=== PATIENT | male | born 1990 | race American Indian/Alaskan Native ===

== ENCOUNTER 2018-06-20 11:00 | Outpatient (CLI) | payer MEDICAID | END 2018-06-20 11:01 | disposition home or self-care (01) | LOC: SLR 11:00 | PROVIDERS: ATTEND Otolaryngology | DX: G47.33 Obstructive sleep apnea (adult) (pediatric) (principal) | CPT/HCPCS: G0399 ==

== ENCOUNTER 2018-06-30 11:00 | Outpatient (CLI) | payer MEDICAID | END 2018-06-30 11:01 | disposition home or self-care (01) | LOC: SLR 11:00 | PROVIDERS: ATTEND Otolaryngology | DX: G47.33 Obstructive sleep apnea (adult) (pediatric) (principal) | CPT/HCPCS: 95811 ==

== ENCOUNTER 2019-03-17 07:20 | Day surgery (SDC) | payer MEDICAID ==
--- NOTE | 2019-03-17 08:17 | Anesthesia Day of Surgery ---
Anesthesia Day of Surgery - Day of Surgery Patient Examined: Yes Patient H&P Reviewed: Yes Patient is NPO: Yes Beta Blockers: No
--- NOTE | 2019-03-17 08:18 | Anesthesia Consultation ---
Anesthesia Consult and Med Hx Date of service: 03/17/19 - Airway Anesthetic Teeth Evaluation: Good ROM Head & Neck: Adequate Mental/Hyoid Distance: Adequate Mallampati Class: Class III Intubation Access Assessment: Probably Good - Pulmonary Exam CTA: Yes - Cardiac Exam Cardiac Exam: No Murmur - Pre-Operative Health Status ASA Pre-Surgery Classification: ASA2 Proposed Anesthetic Plan: MAC - Pulmonary Hx Sleep Apnea: Yes - Other Systems Hx Obesity: Yes
[2019-03-17] MEDS ORDERED: NACL 0.9% 1000 ML 1,000 ML IV SCH (09:00)
[2019-03-17] MEDS ORDERED: DIPRIVAN 10 MG/ML IV ONE (10:10)
[2019-03-17] MEDS ORDERED: VERSED ONE (10:10)
[2019-03-17] MEDS ORDERED: XYLOCAINE 2% INFILTRATI ONE (10:11)
[2019-03-17] MEDS ORDERED: WATER FOR IRRIG STERILE IR ONE (10:13)
--- NOTE | 2019-03-17 14:31 | Operative Report ---
PREOPERATIVE DIAGNOSIS: Morbid obesity. POSTOPERATIVE DIAGNOSIS: Small hiatal hernia. PROCEDURE: EGD. ANESTHESIA: MAC. COMPLICATIONS: None. BLEEDING: None. SPECIMENS: None. INDICATIONS: The patient is a 28-year-old male with a history of morbid obesity. He is here for preoperative EGD. Informed consent obtained. DESCRIPTION OF PROCEDURE: The patient was brought to the GI suite, was placed in the left lateral decubitus position. He underwent MAC anesthesia. A bite block was placed and a timeout was called. A standard adult gastroscope was inserted into the oropharynx and the esophagus into the stomach and first portion of the duodenum. On retroflexion view and inspection, he was noted to have a small type 1 sliding hiatal hernia. There were no other abnormalities. With this, the air was desufflated. The gastroscope was removed. The patient tolerated the procedure well and was transferred to the PACU in stable condition. Counts were correct. JOB# [id number] MAIKEL/KELL
[2019-03-17 20:32] VITALS: BP 129/72
== END 2019-03-17 07:21 | disposition home or self-care (01) ==
LOC: GIO 07:20
PROVIDERS: ATTEND Specialist
DX: K44.9 Diaphragmatic hernia without obstruction or gangrene (principal); E66.01 Morbid (severe) obesity due to excess calories; G47.30 Sleep apnea, unspecified; Z68.29 Body mass index [BMI] 29.0-29.9, adult; Z79.899 Other long term (current) drug therapy
CPT/HCPCS: 43235; J2250; J2704; J7030

== ENCOUNTER 2019-03-24 07:51 | Observation (INO) | payer MEDICAID ==
[~2019-03-24 07:51] MED LIST: ANCEF/STERILE WATER 2 GM/20 ML 2 GM/20 ML SYRINGE IV NR; APRESOLINE IV PRN; FLAGYL 500 MG/100 ML 500 MG/100 ML BAG IV NR; LOVENOX SUB-Q NR; MORPHINE IV PRN; MYLICON PO PRN; NORCO PO PRN; TRANSDERM-SCOP TD SCH; ZOFRAN IV PRN
[2019-03-24] MEDS: LACTATED RINGERS 1,000 ML IV SCH ×2 (08:55→22:53)
[2019-03-24] MEDS ORDERED: TYLENOL PO NR (09:00)
[2019-03-24] MEDS ORDERED: NEURONTIN PO NR (09:00)
[2019-03-24] MEDS ORDERED: DILAUDID IV PRN (09:13)
[2019-03-24] MEDS ORDERED: SUBLIMAZE IV PRN (09:13)
[2019-03-24] MEDS ORDERED: ZOFRAN IV PRN (09:13)
--- NOTE | 2019-03-24 09:14 | Anesthesia Day of Surgery ---
Anesthesia Day of Surgery - Day of Surgery Patient Examined: Yes Patient H&P Reviewed: Yes Patient is NPO: Yes Cardiac Clearance: Yes
--- NOTE | 2019-03-24 09:17 | Anesthesia Consultation ---
Anesthesia Consult and Med Hx Date of service: 03/24/19 - Airway Anesthetic Teeth Evaluation: Chipped ROM Head & Neck: Adequate Mental/Hyoid Distance: Adequate Mallampati Class: Class II Intubation Access Assessment: Good - Pre-Operative Health Status ASA Pre-Surgery Classification: ASA3 Proposed Anesthetic Plan: General - Pulmonary Hx Sleep Apnea: Yes (ISH and Central) - Cardiovascular System Hx Coronary Artery Disease: No (Had bicycle exercise test-results reviewed) - Central Nervous System Hx Psychiatric Problems: No - Gastrointestinal Hx Gastroesophageal Reflux Disease: No (Hiatal Hernia) - Hematic Hx Sickle Cell Disease: No - Other Systems Hx Alcohol Use: Yes Hx Substance Use: No Hx Obesity: Yes
[2019-03-24] MEDS ORDERED: DIPRIVAN 10 MG/ML IV ONE ×2 (10:17→10:43)
[2019-03-24] MEDS ORDERED: XYLOCAINE 1% 20 mL ONE (10:18)
[2019-03-24] MEDS ORDERED: XYLOCAINE MPF 2% ONE (10:18)
[2019-03-24] MEDS ORDERED: ZOFRAN ONE (10:18)
[2019-03-24] MEDS ORDERED: MARCAINE-EPI 0.5%-1:200,000 INFILTRATI ONE ×3 (10:18→11:24)
[2019-03-24] MEDS ORDERED: QUELICIN ONE (10:18)
[2019-03-24] MEDS ORDERED: DECADRON ONE (10:18)
[2019-03-24] MEDS ORDERED: ZEMURON IV ONE (10:18)
[2019-03-24] MEDS ORDERED: SUBLIMAZE ONE ×2 (10:19→11:28)
[2019-03-24] MEDS ORDERED: VERSED ONE (10:38)
[2019-03-24] MEDS ORDERED: NEO SYNEPHRINE/NS Syringe(OR USE) IV ONE ×2 (11:17→11:26)
[2019-03-24] MEDS ORDERED: XYLOCAINE 1% 20 mL INFILTRATI ONE ×2 (11:24)
[2019-03-24] MEDS ORDERED: NACL 0.9% IR ONE (11:25)
[2019-03-24] MEDS ORDERED: BLOXIVERZ ONE (11:53)
[2019-03-24] MEDS ORDERED: ROBINUL ONE (11:53)
--- NOTE | 2019-03-24 12:37 | Operative Report ---
SURGEON: Dario Carbone MD CO-SURGEON: Herlinda Coleman MD DIMPLING MACHINE OPERATOR: Jamal Gamez MD PREOPERATIVE DIAGNOSIS: Morbid obesity. POSTOPERATIVE DIAGNOSIS: Morbid obesity. OPERATION: 1. Laparoscopic sleeve gastrectomy. 2. Laparoscopic hiatal hernia repair. ANESTHESIA: General endotracheal anesthesia. COMPLICATIONS: None. SPECIMENS: Gastric remnant. ESTIMATED BLOOD LOSS: Less than 20 mL. INDICATIONS: The patient is a 28-year-old male with a history of morbid obesity. He has undergone preoperative bariatric workup, presents for his planned operation. The risks, alternatives, and complications had been explained to the patient and informed consent was obtained. DESCRIPTION OF PROCEDURE: The patient was brought to the operating room. He was placed in the supine position and underwent general endotracheal intubation. He received preoperative antibiotics and DVT prophylaxis. He was prepped and draped in the usual sterile fashion and then a timeout was called to ensure proper patient, indication, operation. Local analgesia was injected around the umbilical region and then a small stab incision was made at the base of the insertion of a Veress needle. Insufflation pressures were achieved to 18 mmHg. The incision was widened and exchanged for a 15 mm trocar. On intraabdominal view, there was no injury. Additional 5 mm ports were then placed in the right lateral subxiphoid and left lateral quadrants. A liver retractor was then placed and then the patient was repositioned in steep reverse Trendelenburg. A hydrodissection was first performed revealing a very small hiatal hernia. The angle of His was dissected free. The stomach was then from the gastrocolic ligament via LigaSure device fully mobilizing the stomach as well as the short gastrics posteriorly as well as antegrade out of 6 cm from the duodenum. After this, anesthesia placed a 40-Turkish bougie for calibration and a sleeve gastrectomy was then performed with several staple loads. Insufflation pressures were decreased and the staple line was cauterized after each fire for hemostasis. After this, an anterior cruroplasty was then done with a 0 Surgidac suture in a U-stitch fashion. The gastric remnant was then removed from the umbilical port site and the fascia was closed with #1 PDS in a [id number] fashion. The air was then desufflated from all the ports. The ports were removed. Additional local was injected into all the wounds and the incisions were closed with 4-0 Monocryl. Sterile bandages were placed over top. Counts were correct. The patient tolerated the procedure well and was extubated and left the operating room in stable condition. JOB# [id number] MAIKEL/KELL RAO
[2019-03-24] MEDS: REGLAN IV PRN (13:09)
[2019-03-24] MEDS: DILAUDID IV PRN (22:49)
[2019-03-25] MEDS: DILAUDID IV PRN (05:25)
[2019-03-25] MEDS: REGLAN IV PRN (05:31)
[2019-03-25] MEDS: LACTATED RINGERS 1,000 ML IV SCH (05:36)
--- NOTE | 2019-03-25 08:09 | Discharge Summary ---
Providers - Providers Date of Admission: 03/24/19 08:06 Date of discharge: 03/25/19 Attending physician: VICKI CARBONE Hospitalization Reason for admission: postop care Condition: Good Procedures: 03/25/19: Laparoscopic sleeve gastrectomy Hospital course: 28M admitted after his operation for routine postop care. He had mild nausea but ambulated and tolerated a CLD. He was dc POD#1. Disposition: DC-01 TO HOME OR SELFCARE Core Measure Documentation - Palliative Care Palliative Care/ Comfort Measures: Not Applicable - Core Measures Any of the following diagnoses?: none - VTE Discharge Requirements Deep Vein Thrombosis/Pulmonary Embolism Present on Admission: No - Acute [place] Discharge Requirements Aspirin at discharge: No Reason for no aspirin on DC: Surgical contraindication - Heart Failure Discharge Requirements DANIELLE/ARB for LVSD if EF <40%: Not Applicable - Stroke Discharge Requirements Statin for LDL = or >70 mg/dl on DC: Not Applicable Exam - Physical Exam Narrative exam: Gen: AAO, NAD Heart: RRR Lungs: CTAB Abd: soft, NT, ND, bandages c/d/i Ext: No LE edema - Constitutional Vitals: Temp Pulse Resp BP Pulse Ox 97.6 F 103 H 20 137/60 95 03/25/19 07:10 03/25/19 07:10 03/25/19 07:10 03/25/19 07:10 03/25/19 07:10 Plan Diet: clear liquids Wound: keep clean and dry Special Instructions: no heavy lifting Additional Instructions: Get Carbone as scheduled Follow up with: GEORGE JOSE [Other] - 7 Days
[2019-03-25 08:49] LABS: Basophils % (Auto) 0.2 % (0.0-1.8); Eosinophils % (Auto) 0.1 % (0.0-4.3); Hematocrit 35.9 % (35.5-45.6); Hemoglobin 11.8 gm/dl (11.8-15.2); Lymphocytes # (Auto) 1.3 K/mm3 (1.2-5.4); Lymphocytes % (Auto) 20.7 % (13.4-35.0); Mean Corpuscular HGB Conc 33 % (32-34); Mean Corpuscular Volume 85 fl (84-94); Monocytes # (Auto) 0.6 K/mm3 (0.0-0.8); Monocytes % (Auto) 9.5 % (0.0-7.3); Platelet Count 173 K/mm3 (140-440); Red Blood Count 4.22 M/mm3 (3.65-5.03); Red Cell Distribution Width 15.7 % (13.2-15.2)
[2019-03-25 09:04] LABS: BUN/Creatinine Ratio 8; Blood Urea Nitrogen 7 mg/dL (9-20); Calcium 8.2 mg/dL (8.4-10.2); Hemolysis Index 4
[2019-03-25 12:16] VITALS: BP 112/69
[2019-03-25] MEDS ORDERED: LOVENOX SUB-Q SCH (14:00)
== END 2019-03-25 12:30 | disposition home or self-care (01) ==
LOC: OR 07:51 → 3B-SURG 08:06
PROVIDERS: ADMIT Specialist; ATTEND Specialist
DX: E66.01 Morbid (severe) obesity due to excess calories (principal); K30 Functional dyspepsia; R06.02 Shortness of breath
CPT/HCPCS: 36415; 43281; 43775; 80048; 85025; 88307; 88342; 94760; 96372; 96374; 96375; 96376; G0378; J0330; J0690; J1100; J1170; J1650; J2250; J2270; J2370; J2405; J2704; J2710; J2765; J3010; J7120